=== PATIENT | female | born 1995 | race Two or more races ===

== ENCOUNTER 2018-12-12 17:32 | Emergency (ER) | payer OTHER ==
[2018-12-12 17:41] VITALS: BP 109/78; PULSE 86; TEMP 98.7; BMI 24.4
[2018-12-12] MEDS ORDERED: IBUPROFEN 600 MG TABLET (FP) PO ONE ×2 (17:49→17:53)
[2018-12-12] MEDS ORDERED: ALBUTEROL SO4 2.5/IPRATROPIUM 0.5 INH SOL 3 ML VIAL.NEB. NEB ONE ×3 (17:49→17:57)
--- NOTE | 2018-12-12 18:50 | PDOC ---
Documentation entered by Leonel Lee SCRIBE, acting as scribe for Fatoumata Weber DO. Fatoumata Weber DO: This documentation has been prepared by the Jesus downey Xhesika, SCRIBE, under my direction and personally reviewed by me in its entirety. I confirm that the documentation accurately reflects all work, treatment, procedures, and medical decision making performed by me. History of Present Illness - General Chief Complaint: Respiratory Stated Complaint: COUGH Time Seen by Provider: 12/12/18 17:33 History Source: Patient Exam Limitations: No Limitations - History of Present Illness Initial Comments: 12/12/18 18:03 The patient is a 23 year old female, with no significant past medical history of who presents to the emergency department with 3 months of dry cough. The patient states her cough started 3 months ago when she got a cold, however, the cough never resolved. The patient states she endorses wheezing, congestion, R epigastric pain, runny nose, and itchy eyes secondary to her cough. The patient reports she saw her PCP, Dr. Marcelino and was given steroids for her symptoms with minimal relief. The patient states she endorsed acid reflux for a couple days due to her taking her steroids. The patient states she takes Genie and Claritin with no relief, however she did not take it today. The patient states she sometimes loses her voice due to her productive cough that is worsened at night. The patient denies any rashes or changes in detergent. The patient denies chest pain, shortness of breath, headache or dizziness. The patient denies fever, chills, nausea, diarrhea or constipation. The patient denies dysuria, frequency, urgency or hematuria. Allergies: NKDA Past surgical history: None reported Social history: No tobacco use. No alcohol use. PCP: King Tyler Past History - Past Medical History Allergies/Adverse Reactions: Allergies Allergy/AdvReac Type Severity Reaction Status Date / Time No Known Allergies Allergy Verified 12/12/18 17:34 Home Medications: Ambulatory Orders Albuterol Sulfate Inhaler - [Ventolin HFA Inhaler -] 2 inh PO Q6H PRN #1 inh Inhaler, Assist Devices [Space Chamber Plus] 1 each QID #1 spacer 12/12/18 Review of Systems - Review of Systems Able to Perform ROS?: Yes Comments:: 12/12/18 18:04 GENERAL/CONSTITUTIONAL: No fever or chills. No weakness. HEAD, EYES, EARS, NOSE AND THROAT: (+) runny nose. (+) itchy eyes. (+) congestion. No change in vision. No ear pain or discharge. No sore throat. CARDIOVASCULAR: No chest pain or shortness of breath. RESPIRATORY: (+) dry cough (+) wheezing. No hemoptysis. GASTROINTESTINAL: No nausea, vomiting, diarrhea or constipation. GENITOURINARY: No dysuria, frequency, or change in urination. MUSCULOSKELETAL:(+) R epigastric pain. No joint or muscle swelling or pain. No neck or back pain. SKIN: No rash NEUROLOGIC: No headache, vertigo, loss of consciousness, or change in strength/ sensation. ENDOCRINE: No increased thirst. No abnormal weight change. HEMATOLOGIC/LYMPHATIC: No anemia, easy bleeding, or history of blood clots. ALLERGIC/IMMUNOLOGIC: No hives or skin allergy. *Physical Exam - Vital Signs Last Vital Signs Temp Pulse Resp BP Pulse Ox 98.7 F 86 16 109/78 99 12/12/18 17:33 12/12/18 17:33 12/12/18 17:33 12/12/18 17:33 12/12/18 17:33 - Physical Exam Comments: 12/12/18 18:05 GENERAL: Awake, alert, and fully oriented, in no acute distress HEAD: No signs of trauma EYES: PERRLA, EOMI, sclera anicteric, conjunctiva clear ENT: (+) nasal congestion. (+) enlarged R thyroid. No strider. Auricles normal inspection, hearing grossly normal, nares patent, oropharynx clear without exudates. Moist mucosa NECK: Normal ROM, supple, no lymphadenopathy, JVD, or masses LUNGS:(+) mild wheezing. Breath sounds equal, clear to auscultation bilaterally. No crackles HEART: Regular rate and rhythm, normal S1 and S2, no murmurs, rubs or gallops CHEST: (+) R anterior chest wall tenderness. ABDOMEN: Soft, nontender, normoactive bowel sounds. No guarding, no rebound. No masses EXTREMITIES: Normal range of motion, no edema. No clubbing or cyanosis. No cords, erythema, or tenderness NEUROLOGICAL: Cranial nerves II through XII grossly intact. Normal speech, normal gait SKIN: Warm, Dry, normal turgor, no rashes or lesions noted. ED Treatment Course - RADIOLOGY Radiology Studies Ordered: Category Date Time Status CHEST PA & LAT [RAD] Stat Radiology 12/12/18 17:49 Ordered - Medications Given in the ED: ED Medications Discontinued Medications Generic Name Dose Route Start Last Admin Trade Name Freq PRN Reason Stop Dose Admin Albuterol/Ipratropium 1 amp 12/12/18 17:49 12/12/18 17:59 Duoneb - NEB 12/12/18 17:50 1 amp ONCE ONE Administration Ibuprofen 600 mg 12/12/18 17:49 12/12/18 17:55 Motrin - PO 12/12/18 17:50 600 mg ONCE ONE Administration Medical Decision Making - Medical Decision Making 12/12/18 18:44 a/p: 23yo female with cough x 3 months -rhinorrhea -sneezing -was infectious at the beginning, has improved intermittently with doses of steroids, but now rhinorrhea and a cough at night -suspect post nasal gtt -will obtain xray -neb given for wheezing -reactive airway diseases, poss allergies, does have intermittent eye tearing and congestion -pt is nontoxic in appearance 12/12/18 18:46 cxr clear pt feeling better stable for dc to home has lumpy bumpy thyroid- discussed incidental finding and need for outpt eval of the thyroid gland discussed follow up with ENT and with PMD answered all questions stable for dc to home *DC/Admit/Observation/Transfer Diagnosis at time of Disposition: Cough - Discharge Dispostion Disposition: HOME Condition at time of disposition: Stable Decision to Admit order: No - Prescriptions Prescriptions: Albuterol Sulfate Inhaler - [Ventolin HFA Inhaler -] 2 inh PO Q6H PRN #1 inh PRN Reason: Wheezing Inhaler, Assist Devices [Space Chamber Plus] 1 each QID #1 spacer - Referrals Referrals: King Marcelino MD [Primary Care Provider] - Bree Michel [Staff Physician] - Raciel Page MD [Staff Physician] - - Patient Instructions Printed Discharge Instructions: DI for Cough -- Adult Additional Instructions: Please take an allergy pill- zyrtec or certrazine everyday. Please have your thyroid evaluated by your PMD. Please see the ENT for further eval of you chronic cough and rhinorrhea. Please drink plenty of fluids. Please use the inhaler as prescribed and discussed. Please return to the ED with any further concerns or complaints. - Post Discharge Activity - Attestations Physician Attestion: 12/12/18 18:49 I, Dr. Fatoumata Weber, DO, attest that this document has been prepared under my direction and personally reviewed by me in its entirety. I further attest, that it accurately reflects all work, treatment, procedures and medical decision -making performed by me.
== END 2018-12-12 18:58 | disposition home or self-care (01) ==
LOC: FER 17:32
PROC: 3E0F7GC Introduction of Other Therapeutic Substance into Respiratory Tract, Via Natural or Artificial Opening (ICD-10-PCS; principal; 2018-12-12)
DX: R05 Cough (principal)
CPT/HCPCS: 71046-TC-FY; 99281-25

== ENCOUNTER 2019-08-20 19:50 | Emergency (ER) | payer OTHER ==
[2019-08-20 19:55] VITALS: BP 116/67; PULSE 89; TEMP 98.8; BMI 25.4
--- NOTE | 2019-08-20 22:32 | PDOC ---
History of Present Illness - General Chief Complaint: Cold Symptoms Stated Complaint: COLD SYMPTOMS/NAUSEA Time Seen by Provider: 08/20/19 20:15 Past History - Past Medical History Allergies/Adverse Reactions: Allergies Allergy/AdvReac Type Severity Reaction Status Date / Time No Known Allergies Allergy Verified 12/12/18 17:34 Home Medications: Ambulatory Orders NK [No Known Home Medication] 08/20/19 COPD: No - Immunization History Immunization Up to Date: Yes - Psycho Social/Smoking Cessation Hx Smoking History: Never smoked Hx Alcohol Use: No Drug/Substance Use Hx: No *Physical Exam - Vital Signs Last Vital Signs Temp Pulse Resp BP Pulse Ox 98.8 F 89 16 116/67 99 08/20/19 19:53 08/20/19 19:53 08/20/19 19:53 08/20/19 19:53 08/20/19 19:53 Discharge - Discharge Information Problems reviewed: Yes Clinical Impression/Diagnosis: Viral syndrome Condition: Stable Disposition: HOME - Follow up/Referral - Patient Discharge Instructions Patient Printed Discharge Instructions: DI for Viral Syndrome Additional Instructions: Rest; drink plenty of fluids Tylenol/Motrin as needed for fever/body aches return to work on , Aug 26 return to ER if you have persistent high fever, severe cough, persistent vomiting - Post Discharge Activity Work/Back to School Note: Back to Work
--- NOTE | 2019-08-20 23:16 | PDOC ---
Documentation entered by Selene Amaya SCRIBE, acting as scribe for Rosa Iglesias MD. Rosa Iglesias MD: This documentation has been prepared by the Monique downey Nirvannie, SCRIBE, under my direction and personally reviewed by me in its entirety. I confirm that the documentation accurately reflects all work, treatment, procedures, and medical decision making performed by me. History of Present Illness - General Chief Complaint: Cold Symptoms Stated Complaint: COLD SYMPTOMS/NAUSEA Time Seen by Provider: 08/20/19 20:15 History Source: Patient Exam Limitations: No Limitations - History of Present Illness Initial Comments: 08/20/19 22:36 The patient is a 23 year old female with no significant past medical history, who presents to the emergency department with 3 days of subjective fevers, cough , and headaches. As per patient, her symptoms with associated vomiting, chills, posterior chest wall pain, rhinorrhea, and sore throat. While in the ED, she notes 2 episodes of NBNB emesis. She endorses taking Tylenol and DayQuil, without relief prompting her arrival to the ED. She denies recent diarrhea or constipation. She denies recent dysuria, frequency, urgency or hematuria. She denies recent chest pain or shortness of breath. Allergies: NKDA Past surgical history: None reported. Social history: Nonsmoker. Denies EtOH use and recreational drug use. Past History - Past Medical History Allergies/Adverse Reactions: Allergies Allergy/AdvReac Type Severity Reaction Status Date / Time No Known Allergies Allergy Verified 12/12/18 17:34 Home Medications: Ambulatory Orders NK [No Known Home Medication] 08/20/19 COPD: No - Immunization History Immunization Up to Date: Yes - Psycho Social/Smoking Cessation Hx Smoking History: Never smoked Hx Alcohol Use: No Drug/Substance Use Hx: No Review of Systems - Review of Systems Able to Perform ROS?: Yes Comments:: 08/20/19 22:36 CONSTITUTIONAL: Present: Fever, Chills. EYES: Absent: visual changes ENT: Present: Sore throat. Absent: ear pain CARDIOVASCULAR: Absent: chest pain, no palpitations RESPIRATORY: Present: Cough. Absent: no SOB GI: Absent: abdominal pain, no nausea, no vomiting, no constipation, no diarrhea GENITOURINARY: Absent: dysuria, no frequency, no hematuria MUSKULOSKELETAL: Absent: back pain, no arthralgia, no myalgia SKIN: Absent: rash NEURO: Absent: headache *Physical Exam - Vital Signs Last Vital Signs Temp Pulse Resp BP Pulse Ox 98.8 F 89 16 116/67 99 08/20/19 19:53 08/20/19 19:53 08/20/19 19:53 08/20/19 19:53 08/20/19 19:53 - Physical Exam 08/20/19 22:36 GENERAL: The patient is awake, alert, and fully oriented, in no acute distress. HEAD: Normal with no signs of trauma. EYES: Pupils equal, round and reactive to light, extraocular movements intact, sclera anicteric, conjunctiva clear with no pallor. ENT: +Rhinorrhea. Ears normal, nares patent, oropharynx clear without exudates. Moist mucous membranes. NECK: Normal range of motion, supple without lymphadenopathy, JVD, or masses. LUNGS: Breath sounds equal, clear to auscultation bilaterally. No wheeze/ crackles. HEART: Regular rate and rhythm, normal S1 and S2 without murmur or rub. ABDOMEN: Soft/nontender/nondistended. BS wnl. No guarding or rebound. No palpable masses. No hepatosplenomegaly. EXTREMITIES: Normal range of motion, no edema. No clubbing or cyanosis. No cords, erythema, or tenderness. NEUROLOGICAL: Cranial nerves II through XII grossly intact. Normal speech, normal gait. PSYCH: Normal mood, normal affect. SKIN: Warm, Dry, normal turgor, no rashes or lesions noted. ED Progress Note - Progress Note Progress Note: As noted above, this otherwise healthy 23-year-old woman presents with several days of nonproductive cough, subjective fever, mild posterior left chest pain with deep breathing/coughing. Exam as noted with patient being well hydrated. Lungs are clear and patient has no significant tenderness on exam of the left or right chest wall. Clinical presentation most consistent with viral syndrome/viral bronchitis. Patient advised to rest, drink plenty of fluids and use [id number] medications as needed for symptoms. Work documentation over the next 48 hours provided for the patient. He should return to the ER if she has severe, persistent high fever or develops shortness of breath/severe wheezing. Discharge - Discharge Information Problems reviewed: Yes Clinical Impression/Diagnosis: Viral syndrome Condition: Stable Disposition: HOME - Follow up/Referral - Patient Discharge Instructions Patient Printed Discharge Instructions: DI for Viral Syndrome Additional Instructions: Rest; drink plenty of fluids Tylenol/Motrin as needed for fever/body aches return to work on , Aug 26 return to ER if you have persistent high fever, severe cough, persistent vomiting - Post Discharge Activity Work/Back to School Note: Back to Work
== END 2019-08-20 22:36 | disposition home or self-care (01) ==
LOC: FER 19:50
DX: B34.9 Viral infection, unspecified (principal)
CPT/HCPCS: 99282-25

== ENCOUNTER 2021-06-23 15:10 | Emergency (ER) | payer OTHER ==
[2021-06-23] MEDS ORDERED: diphenhydrAMINE HCL 12.5 MG/5 ML UNIT-DOSE CUPS PO ONE (15:17)
[2021-06-23 15:23] VITALS: BP 116/78; PULSE 76; TEMP 98.3; BMI 25.4
== END 2021-06-23 15:59 | disposition home or self-care (01) ==
LOC: FER 15:10
DX: S60.861A Insect bite (nonvenomous) of right wrist, initial encounter (principal); W57.XXXA Bitten or stung by nonvenomous insect and other nonvenomous arthropods, initial encounter
CPT/HCPCS: 99282-25

== ENCOUNTER 2022-07-08 00:09 | Emergency (ER) | payer OTHER ==
[2022-07-08] MEDS ORDERED: DEXAMETHASONE LIQUID 0.5 MG/5 ML PO ONE (00:12)
[2022-07-08] MEDS ORDERED: ALBUTEROL SO4 2.5/IPRATROPIUM 0.5 INH SOL 3 ML VIAL.NEB. NEB ONE ×3 (00:12→00:19)
[2022-07-08 00:14] VITALS: BP 113/73; PULSE 98; RESP 18; TEMP 97.3; BMI 26.4
[2022-07-08] MEDS ORDERED: DEXAMETHASONE SOD PHOSPHATE 10 MG/1 ML VIAL ONE (00:19)
[2022-07-08] MEDS ORDERED: TERBUTALINE SULFATE 1 MG/1 ML VIAL SQ ONE ×2 (00:21→01:09)
== END 2022-07-08 02:35 | disposition home or self-care (01) ==
LOC: FER 00:09
PROC: 3E0F7GC Introduction of Other Therapeutic Substance into Respiratory Tract, Via Natural or Artificial Opening (ICD-10-PCS; principal; 2022-07-08)
DX: J45.901 Unspecified asthma with (acute) exacerbation (principal)
CPT/HCPCS: 0241U-QW; 99283-25

== ENCOUNTER 2023-01-13 21:17 | Emergency (ER) | payer OTHER ==
[2023-01-13 21:27] VITALS: BP 114/65; PULSE 93; RESP 15; TEMP 98.8; BMI 26.4
[2023-01-13] MEDS ORDERED: predniSONE 20 MG TABLET (UD) PO ONE (21:28)
[2023-01-13] MEDS ORDERED: ALBUTEROL SO4 2.5/IPRATROPIUM 0.5 INH SOL 3 ML VIAL.NEB. NEB ONE ×2 (21:35→22:26)
[2023-01-13] MEDS ORDERED: predniSONE 20 MG TABLET (UD) ONE (21:35)
[2023-01-13] MEDS: ALBUTEROL SO4 2.5/IPRATROPIUM 0.5 INH SOL 3 ML VIAL.NEB. NEB SCH ×3 (21:38→22:13)
== END 2023-01-13 22:46 | disposition home or self-care (01) ==
LOC: FER 21:17
PROC: 3E0F7GC Introduction of Other Therapeutic Substance into Respiratory Tract, Via Natural or Artificial Opening (ICD-10-PCS; principal; 2023-01-13)
DX: J45.909 Unspecified asthma, uncomplicated (principal)
CPT/HCPCS: 99283-25

== ENCOUNTER 2023-09-10 14:00 | Emergency (ER) | payer OTHER ==
[2023-09-10 14:33] VITALS: BP 104/72; PULSE 106; RESP 18; TEMP 99.1; BMI 27.3
== END 2023-09-10 15:55 | disposition home or self-care (01) ==
LOC: FER 14:00
DX: H92.03 Otalgia, bilateral (principal)
CPT/HCPCS: 99282-25

== ENCOUNTER 2024-12-06 11:58 | Emergency (ER) | payer OTHER ==
[2024-12-06 12:08] VITALS: BP 126/83; TEMP 98.2; BMI 26.4
[2024-12-06] MEDS ORDERED: methylPREDNISolone NA SUCC 125 MG/2 ML VIAL ONE (13:00)
[2024-12-06] MEDS ORDERED: ALBUTEROL SO4 2.5/IPRATROPIUM 0.5 INH SOL 3 ML VIAL.NEB. NEB ONE (13:00)
[2024-12-06] MEDS: ALBUTEROL SO4 2.5/IPRATROPIUM 0.5 INH SOL 3 ML VIAL.NEB. NEB SCH (13:10)
[2024-12-06] MEDS: methylPREDNISolone NA SUCC 125 MG/2 ML VIAL IVPB ONE (13:15)
[2024-12-06 13:26] LABS: ABSOLUTE IMMATURE GRANULOCYTES 0.01 x10^3/uL (0.0-0.031); BASOPHILS # 0.04 x10^3/uL (0.01-0.08); EOSINOPHIL % 6.6 % (0.7-5.8); EOSINOPHILS # 0.53 x10^3/uL (0.04-0.36); HEMATOCRIT 41.5 % (34.1-44.9); HEMOGLOBIN 13.9 g/dL (11.2-15.7); MCHC 33.5 g/dl (32.2-35.5); MEAN CELL VOLUME 79.5 fl (79.4-94.8); MEAN PLT VOLUME 9.6 fl (9.4-12.3); MONOCYTE # 0.42 x10^3/uL (0.24-0.86); MONOCYTE % 5.2 % (4.7-12.5); PLATELET COUNT 314 x10^3/uL (182-369)
[2024-12-06 13:48] LABS: BILIRUBIN,TOTAL 0.6 mg/dl (0.2-1); CALCIUM 9.2 mg/dl (8.5-10.1); CREATININE 0.7 mg/dl (0.6-1.3); MAGNESIUM 1.8 mg/dL (1.8-2.4); POTASSIUM 3.6 mmol/L (3.5-5.1); TOT PROT 6.9 g/dl (6.4-8.2)
[2024-12-06 16:22] VITALS: PULSE 117; RESP 16
== END 2024-12-06 14:31 | disposition home or self-care (01) ==
LOC: FER 11:58
PROC: 3E033GC Introduction of Other Therapeutic Substance into Peripheral Vein, Percutaneous Approach (ICD-10-PCS; principal; 2024-12-06)
PROC: 3E0F7GC Introduction of Other Therapeutic Substance into Respiratory Tract, Via Natural or Artificial Opening (ICD-10-PCS; 2024-12-06)
DX: J45.909 Unspecified asthma, uncomplicated (principal); R06.02 Shortness of breath; R05.9 Cough, unspecified; R00.0 Tachycardia, unspecified
CPT/HCPCS: 0241U-QW; 36415; 71045-TC-FY; 80053; 83735; 85025; 99284-25

== ENCOUNTER 2025-06-12 08:28 | Emergency (ER) | payer OTHER ==
[2025-06-12 08:34] VITALS: BP 101/71; PULSE 91; RESP 20; TEMP 98.6; BMI 26.7
[2025-06-12] MEDS ORDERED: IBUPROFEN 600 MG TABLET (FP) PO ONE (08:44)
[2025-06-12] MEDS: IBUPROFEN 600 MG TABLET (FP) PO ONE (08:45)
== END 2025-06-12 09:15 | disposition home or self-care (01) ==
LOC: FER 08:28
PROC: 2W3QX1Z Immobilization of Right Lower Leg using Splint (ICD-10-PCS; principal; 2025-06-12)
DX: S93.401A Sprain of unspecified ligament of right ankle, initial encounter (principal); W10.9XXA Fall (on) (from) unspecified stairs and steps, initial encounter; Y92.009 Unspecified place in unspecified non-institutional (private) residence as the place of occurrence of the external cause
CPT/HCPCS: 73610-TC-RT-FY; 99283-25

== ENCOUNTER 2025-06-19 13:55 | Emergency (ER) | payer OTHER ==
[2025-06-19 14:09] VITALS: BP 116/60; PULSE 87; RESP 14; TEMP 98.6; BMI 26.6
[2025-06-19] MEDS ORDERED: RABIES VACCINE (PCEC)/PF 2.5 UNIT/VIAL IM ONE (14:10)
[2025-06-19] MEDS: RABIES VACCINE (PCEC)/PF 2.5 UNIT/VIAL IM ONE (14:21)
== END 2025-06-19 14:37 | disposition home or self-care (01) ==
LOC: FER 13:55
PROC: 3E0234Z Introduction of Serum, Toxoid and Vaccine into Muscle, Percutaneous Approach (ICD-10-PCS; principal; 2025-06-19)
DX: Z23 Encounter for immunization (principal)
CPT/HCPCS: 90675; 99281-25